=== PATIENT | female | born 1990 ===

== ENCOUNTER 2022-06-03 04:09 | Inpatient (IN) ==
[2022-06-03 03:14] LABS: Amphetamine Screen,Urine Negative ng/mL (Cutoff=1000); Barbiturate Screen,Urine Negative ng/mL (Cutoff=200); Benzodiazepines Screen,Urine Negative ng/mL (Cutoff=200); Cannabinoid Screen,Urine Negative ng/mL (Cutoff = 50); Cocaine Screen,Urine Negative ng/mL (Cutoff= 300); Creatinine,Urine 48 mg/dL; Opiate Screen,Urine Negative ng/mL (Cutoff=300); Phencyclidine Screen,Urine Negative ng/mL (Cutoff=25); Protein/Creatinine Ratio,Urine 0.63 mg/mg (0.00-0.20)
[2022-06-03 03:16] LABS: Basophils # 0.1 K/mcL (0.0-0.2); Basophils % 0.4 %; Eosinophils # 0.1 K/mcL (0.0-0.6); Eosinophils % 0.9 %; Hematocrit 37.4 % (35.3-44.9); Hemoglobin 12.9 g/dL (11.5-15.4); Immature Granulocytes % 0.4 % (0-4); Lymphocytes # 2.4 K/mcL (0.6-4.6); Lymphocytes % 17.2 %; Mean Corpuscular HGB Conc 34.5 g/dL (31.6-35.5); Mean Corpuscular Hemoglobin 32.3 pg (28.0-33.3); Mean Corpuscular Volume 93.7 fL (83.0-100.0); Mean Platelet Volume 10.8 fL (9.4-12.4); Monocytes # 0.7 K/mcL (0.0-1.3); Neutrophils # 10.6 K/mcL (1.6-8.9); Platelet Count 153 K/mcL (140-400); Red Blood Count 3.99 M/mcL (3.82-4.97); Red Cell Distribution Width 12.6 % (11.5-14.5); Segmented Neutrophils % 76.1 %; White Blood Count 13.9 K/mcL (4.3-11.1)
[2022-06-03 03:24] LABS: Alanine Aminotransferase 12 Units/L (7-52); Aspartate Amino Transferase 16 Units/L (13-39); BUN/Creatinine Ratio 11 (6-26); Blood Urea Nitrogen 7 mg/dL (6-20); Lactate Dehydrogenase 115 Units/L (140-271); Uric Acid 4.6 mg/dL (2.3-7.6)
[~2022-06-03 04:09] MED LIST: *HR* FentaNYL (PF) 100 MCG/2 ML VIAL ONE; *HR* Nalbuphine 10 MG/ML AMPUL IV PRN; Azithromycin 500 MG in 0.9 % Sodium Chloride 250 ML IVPB PRN; EPHEDrine 50 MG/ML VIAL IVP PRN; Epidural Premix (fent/bupiv) 110 ML EP ONE; Epidural Premix (fent/bupiv) 110 ML EP SCH; Famotidine 20 MG/2 ML VIAL IVP PRN; Metoclopramide 10 MG/2 ML VIAL IVP PRN; Naloxone 0.4 MG/ML INJ IVP PRN; Ondansetron 4 MG/2 ML VIAL IVP PRN; Oxytocin 30 UNIT/503 ML BAG IVC ONE; Ringers Solution, Lactated 1,000 ML IVC SCH; Ropivacaine/PF 0.2% 20 ML VIAL ONE
[2022-06-03 07:31] LABS: Protein/Creatinine Ratio,Urine 0.3 mg/mg (0.00-0.20)
[2022-06-03 07:50] LABS: Chlamydia Trachomatis DNA Ur NOT DETECTED (Not Detect)
[2022-06-03] MEDS ORDERED: Ondansetron ODT 4 MG TAB.RAPDIS SL PRN (11:51)
[2022-06-03] MEDS ORDERED: Oxytocin 30 UNIT/503 ML BAG IVC SCH (11:51)
[2022-06-03] MEDS ORDERED: Benzocaine/Menthol 56 GM AEROSOL SPRAY TP PRN (11:51)
[2022-06-03] MEDS ORDERED: Lanolin 7 G OINT...G. TP PRN (11:51)
[2022-06-03] MEDS: Acetaminophen 325 MG TABLET PO SCH ×2 (14:14→21:02)
[2022-06-03] MEDS: Ibuprofen 600 MG TABLET PO SCH ×2 (14:14→21:01)
[2022-06-04 00:49] VITALS: O2SAT 97
[2022-06-04] MEDS: Acetaminophen 325 MG TABLET PO SCH (02:57)
[2022-06-04] MEDS: Ibuprofen 600 MG TABLET PO SCH (02:57)
[2022-06-04 08:15] VITALS: BP 121/89; PULSE 70; TEMP 97.8
[2022-06-04] MEDS ORDERED: Prenatal Vit/FA 1 EACH TABLET PO SCH (09:00)
== END 2022-06-04 11:44 | disposition home or self-care (01) | DRG 807 ==
LOC: 1NENULAB → 1NENUOBS 10:45
PROVIDERS: ADMIT Advanced Practice Midwife; ATTEND Advanced Practice Midwife